=== PATIENT | male | born 1960 | race Caucasian/White ===

== ENCOUNTER 2022-06-11 06:13 | Inpatient (IN) | payer MEDICARE ==
[~2022-06-11] VITALS: Ht 180.3 cm; Wt 88.0 kg
[~2022-06-11 06:13] MED LIST: HEPARIN SOD (PORCINE) 5000UNITS/ML 1ML VIAL/SYRINGE SQ ONE; PROAAER10 INH; ceFAZolin SOD 2 GM in IV 1 EA IV ONE
[2022-06-11] MEDS ORDERED: LR 1,000 ML IV SCH ×2 (06:40→14:05)
[2022-06-11] MEDS ORDERED: BUPIVACAINE HCL 0.25% 30ML VIAL As Ordered ONE (06:50)
[2022-06-11] MEDS ORDERED: LIDOCAINE 1% SDV 30ML VIAL As Ordered ONE (06:50)
[2022-06-11] MEDS ORDERED: BIMA01SOL OU (06:52)
[2022-06-11] MEDS ORDERED: MIRA3350 PO (06:52)
[2022-06-11] MEDS ORDERED: BRIM0.2S13 OS (06:52)
[2022-06-11] MEDS ORDERED: propofoL 200 MG/20 ML VIAL As Ordered ONE (07:20)
[2022-06-11] MEDS ORDERED: LIDOCAINE 2% 100MG/5ML SDV (FOR ANES.) As Ordered ONE (07:20)
[2022-06-11] MEDS ORDERED: dexameTHASONE 4 MG/ML 1ML VIAL (J1100 PER 1MG) As Ordered ONE (07:20)
[2022-06-11] MEDS ORDERED: MIDAZOLAM INJ 2MG/2ML VIAL (J2250 PER 1MG) As Ordered ONE (07:20)
[2022-06-11] MEDS ORDERED: ROCURONIUM BROMIDE 50 MG/5 ML VIAL As Ordered ONE ×3 (07:20→12:08)
[2022-06-11] MEDS ORDERED: fentaNYL 250 MCG/5 ML INJECTION As Ordered ONE (07:20)
[2022-06-11] MEDS ORDERED: ONDANSETRON 4MG 2ML VIAL As Ordered ONE (07:20)
[2022-06-11] MEDS ORDERED: ONDANSETRON 4MG 2ML VIAL IV PRN ×2 (07:25→14:05)
[2022-06-11] MEDS ORDERED: PERCOCET 5MG/325MG TAB PO PRN ×2 (07:25)
[2022-06-11] MEDS ORDERED: ALBUTEROL 90 MCG/ACT 8GM HFA INHALER INH PRN (07:25)
[2022-06-11] MEDS ORDERED: LACRILUBE (AKWA TEARS) OPHTH OINT 3.5 GM As Ordered ONE (07:57)
[2022-06-11] MEDS ORDERED: LIDOCAINE 5% OINT 30GM TUBE As Ordered ONE (08:15)
[2022-06-11] MEDS ORDERED: SUGAMMADEX SODIUM 500 MG/5 ML VIAL (BRIDION) As Ordered ONE (09:50)
[2022-06-11] MEDS ORDERED: HYDROmorphone HCL 2MG/ML 1ML VIAL As Ordered ONE (09:50)
[2022-06-11] MEDS ORDERED: ACETAMINOPHEN 1000MG 100ML IV BTL (OFIRMEV) (J0131 PER 10MG) As Ordered ONE (09:53)
[2022-06-11] MEDS ORDERED: METOCLOPRAMIDE INJ 10MG/2ML VIAL (J2765 PER 1) IV PRN (14:05)
[2022-06-11] MEDS ORDERED: fentaNYL 100 MCG/2 ML INJECTION IV PRN (14:05)
[2022-06-11] MEDS: HYDROMORPHONE HCL 0.5 MG/ 0.5 ML SYRINGE (J1170 PER 1) IV PRN ×3 (14:32→15:12)
[2022-06-11 14:34] LABS: HEMOGLOBIN 15.2 g/dl (13.5-17.5); MEAN CORPUSCULAR HEMOGLOBIN 27.7 pg (27.0-33.0); MEAN CORPUSCULAR VOLUME 83.9 fl (80.0-96.0); PLATELET COUNT, AUTOMATED 360 10^3/uL (150-450); RED BLOOD COUNT 5.48 10^6/uL (4.30-6.10); WHITE BLOOD COUNT 17.8 10^3/uL (4.0-10.0)
[2022-06-11] MEDS: oxyCODONE 5MG TAB PO PRN ×2 (15:12→15:39)
[2022-06-11 15:18] LABS: BLOOD UREA NITROGEN 10 MG/DL (7-18); CALCIUM LEVEL 8.6 MG/DL (8.8-10.2); CARBON DIOXIDE LEVEL 22 MEQ/L (21-32); CHLORIDE LEVEL 109 MEQ/L (98-107); CREATININE FOR GFR 1.13 MG/DL (0.70-1.30); GLOMERULAR FILTRATION RATE > 60.0 (>49); GLUCOSE, FASTING 182 MG/DL (70-100); POTASSIUM SERUM 4.4 MEQ/L (3.5-5.1); SODIUM LEVEL 138 MEQ/L (136-145)
[2022-06-11 17:27] VITALS: BP 149/91
[2022-06-11 18:00] VITALS: BP 153/85
[2022-06-11] MEDS: NS 1,000 ML IV SCH ×2 (18:06→18:30)
[2022-06-11] MEDS: ceFAZolin SOD 1 GM in D5W MINI-BAG PLUS 50 ML IV SCH (18:06)
[2022-06-11 19:00] VITALS: BP 154/86
[2022-06-11 20:00] VITALS: BP 169/76
[2022-06-11] MEDS: HEPARIN SOD (PORCINE) 5000UNITS/ML 1ML VIAL/SYRINGE SC SCH (20:36)
[2022-06-11] MEDS: LATANOPROST 0.005% OPHTH SOLN 2.5 ML OU SCH ×2 (20:36→21:00)
[2022-06-11] MEDS: DOCUSATE SODIUM 100MG CAPSULE PO SCH (20:36)
[2022-06-11] MEDS: BRIMONIDINE 0.15% OPHTH SOLN 5 ML OS SCH ×2 (20:36→21:00)
[2022-06-11 21:00] VITALS: BP 152/78
[2022-06-11 22:00] VITALS: BP 149/81
[2022-06-12] MEDS: NS 1,000 ML IV SCH (00:11)
[2022-06-12] MEDS: ceFAZolin SOD 1 GM in D5W MINI-BAG PLUS 50 ML IV SCH (00:12)
[2022-06-12 02:00] VITALS: BP 145/79
[2022-06-12] MEDS: HEPARIN SOD (PORCINE) 5000UNITS/ML 1ML VIAL/SYRINGE SC SCH ×3 (05:07→20:21)
[2022-06-12 06:00] VITALS: BP 144/81
[2022-06-12 06:39] LABS: HEMATOCRIT 43.7 % (42.0-52.0); HEMOGLOBIN 14.7 g/dl (13.5-17.5); MEAN CORPUSCULAR HEMOGLOBIN 28.3 pg (27.0-33.0); MEAN CORPUSCULAR HGB CONC 33.6 g/dl (32.0-36.5); PLATELET COUNT, AUTOMATED 326 10^3/uL (150-450); WHITE BLOOD COUNT 12.8 10^3/uL (4.0-10.0)
[2022-06-12 07:20] LABS: CALCIUM LEVEL 8.5 MG/DL (8.8-10.2); CREATININE FOR GFR 1.29 MG/DL (0.70-1.30); GLOMERULAR FILTRATION RATE 59.9 (>49); POTASSIUM SERUM 4.2 MEQ/L (3.5-5.1)
[2022-06-12] MEDS: BRIMONIDINE 0.15% OPHTH SOLN 5 ML OS SCH ×2 (09:00→19:12)
[2022-06-12] MEDS: DOCUSATE SODIUM 100MG CAPSULE PO SCH ×2 (09:00→19:12)
[2022-06-12] MEDS: ACETAMINOPHEN TAB 650MG DOSE (2X325MG) PO PRN ×2 (09:03→13:15)
[2022-06-12 14:00] VITALS: BP 147/83
[2022-06-12] MEDS: traMADol 50 MG TAB PO PRN (17:07)
[2022-06-12] MEDS: LATANOPROST 0.005% OPHTH SOLN 2.5 ML OU SCH (19:12)
[2022-06-12] MEDS ORDERED: ACETAMINOPHEN 500 MG TAB PO PRN (20:00)
[2022-06-12 22:00] VITALS: BP 100/74
[2022-06-13] MEDS: traMADol 50 MG TAB PO PRN ×3 (00:11→13:46)
[2022-06-13] MEDS: HEPARIN SOD (PORCINE) 5000UNITS/ML 1ML VIAL/SYRINGE SC SCH (05:56)
[2022-06-13 06:00] VITALS: BP 121/68
[2022-06-13 07:03] LABS: HEMATOCRIT 44.7 % (42.0-52.0); HEMOGLOBIN 14.8 g/dl (13.5-17.5); MEAN CORPUSCULAR HEMOGLOBIN 28.1 pg (27.0-33.0); MEAN CORPUSCULAR HGB CONC 33.1 g/dl (32.0-36.5); PLATELET COUNT, AUTOMATED 311 10^3/uL (150-450); RED BLOOD COUNT 5.26 10^6/uL (4.30-6.10); WHITE BLOOD COUNT 10.6 10^3/uL (4.0-10.0)
[2022-06-13] MEDS: DOCUSATE SODIUM 100MG CAPSULE PO SCH (07:32)
[2022-06-13] MEDS: BRIMONIDINE 0.15% OPHTH SOLN 5 ML OS SCH (07:32)
[2022-06-13 07:39] LABS: BLOOD UREA NITROGEN 11 MG/DL (7-18); CALCIUM LEVEL 8.6 MG/DL (8.8-10.2); CARBON DIOXIDE LEVEL 28 MEQ/L (21-32); CHLORIDE LEVEL 106 MEQ/L (98-107); CREATININE FOR GFR 1.28 MG/DL (0.70-1.30); GLOMERULAR FILTRATION RATE > 60.0 (>49); GLUCOSE, FASTING 98 MG/DL (70-100); POTASSIUM SERUM 4.2 MEQ/L (3.5-5.1); SODIUM LEVEL 139 MEQ/L (136-145)
[2022-06-13 08:48] LABS: CREATININE BF 1.2 MG/DL (NOT ESTABLISHED); SOURCE, BODY FLUID CREATININE PERITONEAL
[2022-06-13] MEDS ORDERED: TRAM50TA2 PO (09:06)
[2022-06-13] MEDS ORDERED: COLA100C5 PO (09:06)
[2022-06-13] MEDS ORDERED: BACTRIM 160MG/800MG DS TAB PO SCH (09:10)
[2022-06-13] MEDS ORDERED: BACTDSTA PO (09:13)
[2022-06-13] MEDS ORDERED: MECLIZINE 25 MG TABLET PO ONE (13:15)
== END 2022-06-13 13:55 | disposition home or self-care (01) | DRG 658 ==
LOC: M OR 06:13 → M MS5PR 17:20
PROVIDERS: ADMIT Urology; ATTEND Urology
PROC: 0TT74ZZ Resection of Left Ureter, Percutaneous Endoscopic Approach (ICD-10-PCS; 2022-06-11)
PROC: 8E0W4CZ Robotic Assisted Procedure of Trunk Region, Percutaneous Endoscopic Approach (ICD-10-PCS; 2022-06-11)
PROC: 0TT14ZZ Resection of Left Kidney, Percutaneous Endoscopic Approach (ICD-10-PCS; principal; 2022-06-11 07:30)
DX: C68.8 Malignant neoplasm of overlapping sites of urinary organs (principal)